=== PATIENT | female | born 1980 | race African-American/Black ===

== ENCOUNTER 2024-07-03 22:55 | Emergency (ER) | payer OTHER, SELFPAY ==
--- NOTE | ~2024-07-03 | CT_ITS ---
EXAMINATION: CT abdomen pelvis wo con DATE: 07/04/2024 00:44 INDICATION: Pelvic pain. TECHNIQUE: Computed tomography (CT) of the abdomen and pelvis was performed without intravenous contr ast. Automated exposure control and iterative reconstruction technique were employed. The dose-length product was 295.07 mGy-cm. COMPARISON: None. FINDINGS: The visualized portions of the lung bases demonstrate minimal atelectasis. No pleural effus ion. The heart size is normal. No pericardial effusion. The liver, gallbladder, spleen, pancreas, and left adrenal gland are normal. There is a 1.4 cm mass in right adrenal gland, likely an adenoma in t he absence of known malignancy. The kidneys are normal. There is no urolithiasis. There are no dilate d loops of bowel. The appendix measures 7 mm in diameter and demonstrates intraluminal gas, likely no rmal. There are no pathologically enlarged lymph nodes. There is no free intraperitoneal fluid. The u terus is retroverted. There is mild lumbar spondylosis. IMPRESSION: 1. No specific etiology for the patient's symptoms. Reviewed, dictated and finalized at location A.
[2024-07-03 23:00] VITALS: BP 141/94; PULSE 96; RESP 17; TEMP 36.2; O2SAT 100
--- NOTE | 2024-07-03 23:50 | ED.ABDPAIN ---
HPI - Abdominal Pain General Chief Complaint: Abdominal Pain Stated Complaint: Pelvic pain/cramps; feel like uterus will fall out Time Seen by Provider: 07/03/24 23:42 History of Present Illness HPI narrative: 43-year-old female with no pertinent past medical history presenting to the emergency department with complaints of pelvic pain and feeling fullness in her vaginal canal. She describes a sensation of ?feeling like my uterus is falling out. She has seen OBGYN this here in January and was prescribed diazepam suppository which did initially improve the symptoms. She has not followed up with her OBGYN since this happened. No abdominal surgeries, no pelvic surgeries. She was otherwise in her normal state of health. Describes a sensation of fullness especially when she stands up or walks around. Endorses pain with defecation secondary to the pressure in her pelvis. Denies any urinary complaints. She has just finished her menstrual cycle but still feels like she is spotting occasionally. Denies any vaginal discharge such as purulence or cream color or foul odor discharge. Related Data Home Medications Medication Instructions Recorded Confirmed No Home Medications 08/18/19 08/18/19 Allergies Allergy/AdvReac Type Severity Reaction Status Date / Time No Known Allergies Allergy Verified 07/03/24 23:03 Review of Systems Review of Systems: As reviewed above in HPI [facility] Past Medical History Medical History (Updated 07/04/24 @ 01:36 by Cole Rudd MD) Sterilization Exam Narrative: GENERAL: [Well-appearing, well-nourished, and in no acute distress.] HEAD: [Normocephalic, atraumatic.] EYES: [PERRLA and EOMI.] ENT: Nares clear, no rhinorrhea or epistaxis. Mucous membranes moist. NECK: Supple. CHEST: [Clear to auscultation. No respiratory distress.] HEART: [Regular rate and rhythm]. No murmur heard. [Normal peripheral pulses.] ABDOMEN: [Soft, nondistended], [nontender], [No rigidity or guarding] EXTREMITIES: Normal range of motion. [No edema.] SKIN: Warm, dry, no rash. NEURO: [No focal deficits]. Alert and oriented [x3.] PSYCH: [Normal mood and affect.] Course Vital Signs Vital signs: Vital Signs Temperature 36.2 C L 07/03/24 23:00 Pulse Rate 96 10/26/24 23:00 Respiratory Rate 17 07/03/24 23:00 Blood Pressure 141/94 H 07/03/24 23:00 Pulse Oximetry 100 07/03/24 23:00 Oxygen Delivery Room Air 07/03/24 23:00 Temperature 36.2 C L 07/03/24 23:00 Pulse Rate 96 07/03/24 23:00 Respiratory Rate 17 07/03/24 23:00 Blood Pressure 141/94 H 07/03/24 23:00 Pulse Oximetry 100 07/03/24 23:00 Oxygen Delivery Room Air 07/03/24 23:00 MDM - Abdominal Pain MDM Narrative Medical decision making narrative: 43-year-old female with presenting complaint being pelvic pain with intermittent pain with defecation. She describes a fullness in her lower pelvis and vaginal canal. Thinks that she is having a prolapse of some sort. Previously seen by OBGYN in January of this year for similar symptoms. No surgeries. Was otherwise in her normal state of health. She has no vital concerns with any fever, tachycardia, hypoxia blood pressure is anomalies. She otherwise appears well not any acute distress with a soft nontender nondistended abdomen. Chaperoned examination of the external genitalia and speculum examination conducted with nurse present at bedside. Laboratory studies were obtained and a CT scan without contrast was obtained to assess the pelvic area. Chaperoned examination with nurse at bedside does reveal a low lying cervical os which does raise suspicion for potential mild pelvic organ prolapse. No cervical motion tenderness, no discharge, no adnexal tenderness. Patient CT scan report was independent reviewed by myself and also interpreted by radiology. There is no evidence of any significant pelvic overt prolapse but a mild degree is not excluded especially this combined with her physical exam. Unremarkable liver, gallbladder, spleen, pancreas and kidneys. No bowel obstruction. Retroverted uterus and no acute osseous findings. Workup reveals no leukocytosis or anemia. Electrolytes within normal limits, normal renal and hepatic function panel. Normal lipase. Negative test, no signs of infection on the urinalysis. Patient is stable for discharge with regular outpatient OBGYN follow-up at this time. Patient was informed of her CT scan clinical results and will follow up outpatient. Medical Records Attestation: I reviewed the patient's medical records. Lab Data Attestation: I reviewed the patient's lab results. 07/03/24 23:59 07/03/24 23:59 Labs: Lab Results 07/03/24 07/04/24 Range/Units 23:59 00:25 WBC 6.7 (4.5-10.0) K/mm3 RBC 3.95 L (4.2-5.4) M/mm3 Hgb 12.5 (12.0-15.0) g/dL Hct 38.4 (37.0-47.0) % MCV 97.2 (80-100) fl MCH 31.6 (26-34) pg MCHC 32.6 (32-36) g/dl RDW 11.9 (11.5-14.5) % Plt Count 320 (150-375) k/mm3 MPV 9.4 (7.4-10.4) fl Immature Gran % (Auto) 0.1 (0-0.5) % Neut % (Auto) 44.7 L (45.5-73.1) % Lymph % (Auto) 41.9 (18.3-44.2) % [place] % (Auto) 9.4 H (2.6-8.5) % Eos % (Auto) 3.3 (0-4.4) % Baso % (Auto) 0.6 (0.2-1.2) % Lymph # (Auto) 2.81 (0.9-3.2) K/mm3 [place] # (Auto) 0.6 (0.1-0.6) K/mm3 Eos # (Auto) 0.2 (0-0.3) K/mm3 Baso # (Auto) 0.0 (0.0-0.1) K/mm3 Abs Immat Gran (auto) 0.01 (0.00-0.031) K/mm3 Absolute Neuts (auto) 3.0 (1.3-6.7) K/mm3 Absolute Nucleated RBC 0.000 (0.0-0.012) K/mm3 Nucleated RBC % 0.0 (0.0-0.2) % Sodium 141 (137-145) mmol/L Potassium 3.4 (3.4-5.0) mmol/L Chloride 104 (98-107) mmol/L Carbon Dioxide 28 (22-30) mmol/L Anion Gap 9 (4-12) mmol/L BUN 11 (7-17) mg/dL Creatinine 0.80 (0.7-1.0) mg/dL Estim Creat Clear Calc 72 ml/min Estimated GFR > 60 (59 - ) Glucose 73 (65-110) mg/dL Calcium 9.6 (8.4-10.2) mg/dL Total Bilirubin 0.4 (0.2-1.3) mg/dL AST 19 (14-36) U/L ALT 15 (6-35) U/L Alkaline Phosphatase 75 (38-126) U/L Total Protein 8.0 (6.3-8.2) g/dL Albumin 4.6 (3.5-5.1) g/dL Lipase 59 (23-300) U/L Urine Color Yellow (Yellow) Urine Appearance Clear (Clear) Urine pH 6.5 (5.0-9.0) Ur Specific [place] 1.018 (1.001-1.035) Urine Protein Negative (Negative) mg/dL Urine Glucose (UA) Negative (Negative) mg/dL Urine Ketones Negative (Negative) mg/dL Ur Blood (Man) Non-hemolyzed trace H (Negative) Urine Nitrate Negative (Negative) Urine Bilirubin Negative (Negative) Urine Urobilinogen 1.0 (<2.0) mg/dL Leukocyte Esterase Rfl Negative (Negative) EDGAR/UL Urine RBC 3-5 H (0-2) /hpf Urine WBC 0-5 (0-3) /hpf Ur Squamous Epith Cells None seen (Few) /hpf Urine Bacteria None seen /hpf Urine Casts 0-2 POC Urine HCG, Qual Negative (Negative) Imaging Data Attestation: I personally reviewed and interpreted this imaging study as follows: Discharge Plan Discharge Clinical Impression: Pelvic pain Patient Disposition: Home, Self-Care Condition: Stable Instructions: Antibiotic Form, Uterine Prolapse (ED), Pelvic Pain (ED) Additional Instructions: Your CT scan does not show any significant pelvic organ prolapse but your physical exam does show some potential concern for this. Your laboratory studies were all normal. You need to follow-up with OBGYN for repeat examination and definitive management. Return at any point with any new or worsening concerns. Prescriptions: No Action No Home Medications Follow-up/Referrals: Tee Huddleston MD [Physician] - 1 Week (Pelvic pain, concern for mild prolapse) UNKNOWN,DOCTOR [Primary Care Provider] - Time of Disposition: 01:36
[2024-07-04 00:23] LABS: Add Urine Microscopic? NO; Appearance Urine Clear (Clear); Bacteria Urine None Seen /hpf; Bilirubin Urine Negative (Negative); Blood Urine Non-Hemolyzed Trace (Negative); Color Urine Yellow (Yellow); Glucose Urine UA Negative (Negative); Ketones Urine Negative (Negative); Leukocyte Esterase Ur Negative LEU/UL (Negative); Nitrate Urine Negative (Negative); Non Pathogenic Casts 0-2; Protein Urine Negative (Negative); Specific Grav Ur 1.018 (1.001-1.035); Squamous Epithelial Cell Urine None Seen /hpf (Few); WBC Urine 0-5 /hpf (0-3); pH Urine 6.5 (5.0-9.0)
[2024-07-04 00:27] LABS: Alanine Aminotransferase 15 U/L (6-35); Albumin Level 4.6 g/dL (3.5-5.1); Alkaline Phosphatase 75 U/L (38-126); Anion Gap 9 mmol/L (4-12); Aspartate Amino Transferase 19 U/L (14-36); Bilirubin,Total 0.4 mg/dL (0.2-1.3); Blood Urea Nitrogen 11 mg/dL (7-17); Calcium 9.6 mg/dL (8.4-10.2); Carbon Dioxide 28 mmol/L (22-30); Chloride 104 mmol/L (98-107); Estimated CRCL calculation 72 ml/min; Estimated Glomerular Filt Rate > 60; Glucose 73 mg/dL (65-110); Lipase 59 U/L (23-300); Potassium 3.4 mmol/L (3.4-5.0); Sodium 141 mmol/L (137-145)
[2024-07-04 00:27] LABS: BEDSIDEPREGUCG Negative (Negative)
[2024-07-04 00:35] LABS: Basophils Percent Auto 0.6 % (0.2-1.2); Eosinophils Absolute Auto 0.2 K/mm3 (0-0.3); Eosinophils Percent Auto 3.3 % (0-4.4); Hematocrit 38.4 % (37.0-47.0); Hemoglobin 12.5 g/dL (12.0-15.0); Immature Granulocyte Absolute 0.01 K/mm3 (0.00-0.031); Immature Granulocyte Percent A 0.1 % (0-0.5); Lymphocytes Absolute Auto 2.81 K/mm3 (0.9-3.2); Lymphocytes Percent Auto 41.9 % (18.3-44.2); Mean Corpuscular HGB Conc 32.6 g/dl (32-36); Mean Corpuscular Hemoglobin 31.6 pg (26-34); Mean Corpuscular Volume 97.2 fl (80-100); Mean Platelet Volume 9.4 fl (7.4-10.4); Monocytes Absolute Auto 0.6 K/mm3 (0.1-0.6); Monocytes Percent Auto 9.4 % (2.6-8.5); Neutrophils Percent Auto 44.7 % (45.5-73.1); Platelet Count Result 320 k/mm3 (150-375); Red Blood Count 3.95 M/mm3 (4.2-5.4); Red Cell Distribution Width 11.9 % (11.5-14.5); White Blood Count 6.7 K/mm3 (4.5-10.0)
[2024-07-04 01:45] VITALS: BP 127/98; PULSE 79; RESP 17; O2SAT 100
== END 2024-07-04 01:47 | disposition home or self-care (01) ==
PROVIDERS: Emergency Provider Student in an Organized Health Care Education/Training Program
DX: R10.2 Pelvic and perineal pain (principal)
CPT/HCPCS: 36415; 74176; 80053; 81003; 81025; 83690; 85025; 99284